=== PATIENT | male | born 1950 | race Two or more races ===

== ENCOUNTER 2017-12-12 10:33 | Inpatient (IN) | payer MEDICARE, MEDICAID ==
[~2017-12-12] VITALS: Ht 170.2 cm; Wt 70.8 kg
--- NOTE | 2017-12-12 10:38 | NUR ---
[id number] FROM [facility]: S/P WITNESSED SEIZURE x 2 AT [facility]. ASSISTED TO GROUND. NO TRAUMA, NO KO. AAO X2, NAD NOTED. SZ PRECAUTIONS PLACED. MD AT BEDSIDE FOR EVAL.
[2017-12-12 10:54] LABS: BASOPHILS % (AUTO) 0.2 % (0.0-2.0); EOSINOPHILS % (AUTO) 0.1 % (0.0-6.0); HEMATOCRIT 41 % (39-51); HEMOGLOBIN 14.1 g/dL (13.5-17.5); LYMPHOCYTES # (AUTO) 0.4 /CMM (0.8-4.8); LYMPHOCYTES % (AUTO) 6.9 % (20.0-44.0); MEAN CORPUSCULAR HEMOGLOBIN 34 PG (26.0-33.0); MEAN CORPUSCULAR HGB CONC 34 g/dl (31.0-36.0); MEAN CORPUSCULAR VOLUME 98 fL (80-96); MONOCYTES # (AUTO) 0.3 /CMM (0.1-1.30); MONOCYTES % (AUTO) 5.5 % (2.0-12.0); NEUTROPHILS # (AUTO) 5.6 /CMM (1.8-8.9); NEUTROPHILS % (AUTO) 87.3 % (43.0-81.0); PLATELET COUNT (AUTO) 289 /CMM (150-450); RDW COEFFICIENT OF VARIATION 13.3 (11.5-15.0); WHITE BLOOD COUNT (AUTO) 6.3 K/uL (4.3-11.0)
[2017-12-12 11:07] LABS: CALCIUM, SERUM 8.9 mg/dL (8.5-10.1); CARBON DIOXIDE 22 mmol/L (21-32); CHLORIDE 94 mmol/L (98-107); GLUCOSE 126 mg/dL (74-106); SODIUM SERUM 129 mmol/L (136-145); UREA NITROGEN, BLOOD 12 mg/dL (7-18)
[2017-12-12 11:26] LABS: ALANINE AMINOTRANSFERASE 19 U/L (12-78); ALCOHOL, BLOOD < 3 mg/dL (0-0); ALKALINE PHOSPHATASE 81 U/L (46-116); ASPARTATE AMINOTRANSFERASE 16 U/L (15-37); BILIRUBIN,DIRECT 0.1 mg/dL (0.0-0.2); BILIRUBIN,TOTAL 0.4 mg/dL (0.2-1.0); TOTAL PROTEIN, SERUM 7.3 g/dL (6.4-8.2)
[2017-12-12] MEDS ORDERED: PRAV20TA4 PO (11:41)
[2017-12-12] MEDS ORDERED: RISP0.253 PO (11:41)
[2017-12-12] MEDS ORDERED: ALBU18HF2 IH (11:41)
[2017-12-12] MEDS ORDERED: SPIR25TA PO (11:41)
[2017-12-12] MEDS ORDERED: METO25TA3 PO (11:41)
[2017-12-12] MEDS ORDERED: POTA20TA83 PO (11:41)
[2017-12-12] MEDS ORDERED: CHOL100044 PO (11:41)
[2017-12-12] MEDS ORDERED: HALO2TAB PO (11:41)
[2017-12-12] MEDS ORDERED: TAMS-12 PO (11:41)
[2017-12-12] MEDS ORDERED: LEVE250T2 PO (11:41)
[2017-12-12] MEDS ORDERED: ASPI-1152 PO (11:41)
[2017-12-12] MEDS ORDERED: VALS80TA2 PO (11:41)
--- NOTE | 2017-12-12 12:18 | NUR ---
BED 314-2
--- NOTE | 2017-12-12 12:45 | NUR ---
CHIPS SCREEN TENDERREFRIGERATION MECHANIC NOTE RECEIVED REPORT FROM KUNAL VERDIN. PATIENT WAS BROUGHT FROM [facility] DUE TO HAVING TWO WITNESSED SEIZURES, AND PATIENT HAD ONE MORE SEIZURE ON AMBULANCE ON THE WAY [facility]. PATIENT IS ALERT AND ORIENTED x1. NO PAIN AT THIS TIME. NO SOB OR DISTRESS NOTED. CALL LIGHT WITHIN REACH. SAFETY MEASURES IMPLEMENTED, SEIZURE PRECAUTION IMPLEMENTED. SKIN ISSUES PRESENT. MRSA SWAB DONE. LEFT HAND 18G, AND RIGHT AC 18G INTACT AND PATENT NO REDNESS OR SWELLING NOTED. ON ROOM AIR TOLERATING WELL O2 SATURATION ABOVE 92%. ALL BELONGINGS AT BEDSIDE AND ACCOUNTED FOR. AWAITING MD ORDERS. WILL CONTINUE TO MONITOR THROUGHOUT SHIFT AND MONITOR FOR ADDITIONAL SEIZURES. TELE MONITOR- SR 86
--- NOTE | 2017-12-12 13:05 | NUR ---
RN NOTES RECEIVED VERBAL ORDER BY DR DILIP SALMON 100 IV X4 DAYS , SEIZURE PRECAUTION, CONTINUE MEDICATION, CONTINUE DIET, ORDER TAKEN AND CARRIED OUT.
[2017-12-12 14:10] VITALS: BP 134/91
[2017-12-12] MEDS: LEVETIRACETAM (500MG) 250 MG in IV NS 0.9% 100 ML IV SCH ×2 (15:50→20:43)
[2017-12-12 16:05] VITALS: BP 135/97
[2017-12-12] MEDS ORDERED: HALOPERIDOL 1 MG TABLET PO PRN (17:00)
[2017-12-12] MEDS ORDERED: LEVETIRACETAM (250 MG) 250 MG TABLET PO SCH (17:00)
[2017-12-12] MEDS: risperiDONE 0.25 MG TABLET PO SCH (17:04)
[2017-12-12] MEDS: VALSARTAN 80 MG TABLET PO SCH (17:04)
--- NOTE | 2017-12-12 18:29 | NUR ---
HYDROTEL OPERATOR CLOSING NOTE PATIENT IS ALERT AND ORIENTED X1. CALL LIGHT WITHIN REACH AT ALL TIMES. SAFETY MEASURES IMPLEMENTED. SEIZURE PRECAUTIONS IN PLACE. ALL DUE MEDICATIONS GIVEN ORDERED. AWAITING PT AND WOUND CONSULT. NO SEIZURE ACTIVITY NOTED THROUGHOUT SHIFT. NO PAIN, NO SOB OR DISTRESS AT THIS TIME. WILL ENDORSE TO CLERK GUIDE FOR MALIKA Addendum: 12/12/17 at 1832 by KEVIN MENENDEZ RN TELE MONITOR SR-[id number]
[2017-12-12] MEDS ORDERED: ALBUTEROL FS 2.5 MG/3 ML VIAL.NEB NEB PRN (19:30)
--- NOTE | 2017-12-12 19:30 | NUR ---
RN NOTES: RECEIVED AWAKE ON BED, SEMI FOWLERS POSITION,ON RA SPO2-98%.TELE MONITOR SINUS BRADYCARDIA-54,PATIENT IS COMFORTABLE, NO SIGN OF SOB OR ANY RESPIRATORY DISTRESS,FALL, SAFETY, ASPIRATION, SEIZURE PRECAUTION OBSERVED AT ALL TIMES, ON 1;1 SITTER FOR CLOSE WATCH,A/OX1 ABLE TO MAKE NEEDS KNOWN, HEBREW SPEAKING,RAC G#18 AND LH G#20 CANNULA INTACT AND PATENT;CALL LIGHT WITHIN EASY REACH, BED LOW AND LOCKED.
[2017-12-12 20:00] VITALS: BP 142/97
[2017-12-12] MEDS: PRAVASTATIN SODIUM 20 MG TABLET PO SCH (21:40)
[2017-12-12] MEDS: TAMSULOSIN 0.4 MG CAP.SR.24H PO SCH (21:40)
[2017-12-13] VITALS: BP 136/95
--- NOTE | 2017-12-13 03:45 | NUR ---
RN NOTES: ABLE TO SLEEP AT SHORT INTERVALS,HE WAS AWAKEN WHEN HIS ROOM MATE STARTED TO SHOUT AND HE START TO GET AGITATED ALSO, ABLE TO PACIFY AND CALM HIM DOWN AND LET HIM REST.
--- NOTE | 2017-12-13 04:15 | NUR ---
RN NOTES: 1;1 SITTER EXPLAINED TO HIM WE NEED TO CHECK HIS V/S HE WAS STILL UPSET AND UNABLE TO GO BACK TO SLEEP AFTER HE WAS AWAKEN BY LOUD SOUND.HE REFUSE FOR V/S TO BE TAKEN, WILL TRY AGAIN LATER.
[2017-12-13 06:00] VITALS: BP 133/82
--- NOTE | 2017-12-13 06:56 | NUR ---
RN NOTES: ABLE TO SLEEP AGAIN, V/S CHECKED WITHIN NORMAL RANGE,ENDORSED FOR CONTINUITY OF CARE, NO SEIZURE IN THE ENTIRE SHIFT,WILL CONTINUE TO MONITOR.
--- NOTE | 2017-12-13 07:25 | NUR ---
CODER OPERATOR/OPENING NOTES RECEIVED PT. IN BED A&OX1.1:1 SITTER AT BEDSIDE. TELE MONITOR READING SINUS BRADUCARIA 55 BPM. BREATHING UNLABORED, AND EVENLY ON ROOM AIR. NO S/S OF ACUTE DISTRESS. IV ACCESS ON RIGHT ANTECUBITAL SITE. PT. IS ON SEIZURE PRECAUTIONS. PADDING ON 2 UPPER SIDE RAILS. BED IS IN LOWEST, AND LOCKED POSITION. 2 SIDE RAILS UP, AND CALL LIGHT IS WITHIN REACH. ALL NEEDS MET. WILL CONTINUE TO ASSESS AND MONITOR.
[2017-12-13 08:00] VITALS: BP 120/80
[2017-12-13] MEDS: LEVETIRACETAM (500MG) 250 MG in IV NS 0.9% 100 ML IV SCH (09:49)
[2017-12-13] MEDS: POTASSIUM CHLORIDE 20 MEQ TAB.PRT.SR PO SCH (09:49)
[2017-12-13] MEDS: CHOLECALCIFEROL 1,000 UNIT TABLET (VIT D3) PO SCH (09:50)
[2017-12-13] MEDS: ASPIRIN EC 81 MG TABLET.DR PO SCH (09:50)
[2017-12-13] MEDS: risperiDONE 0.25 MG TABLET PO SCH ×2 (09:53→17:28)
[2017-12-13] MEDS: METOPROLOL SUCCINATE 25 MG TAB.SR.24H PO SCH (10:04)
[2017-12-13] MEDS: VALSARTAN 80 MG TABLET PO SCH ×2 (10:05→17:28)
[2017-12-13] MEDS: SPIRONOLACTONE 25 MG TABLET PO SCH (10:05)
[2017-12-13 16:00] VITALS: BP 123/84
--- NOTE | 2017-12-13 18:55 | NUR ---
DRUG SAFETY PHYSICIAN/CLOSING NOTES PT. IN BED A&OX1-2, WITH A 1:1 SITTER AT BEDSIDE. TELE MONITOR READING SINUS RHYTHM 60 BPM. BREATHING UNLABORED, AND EVENLY ON ROOM AIR. NO S/S OF ACUTE DISTRESS. IV ACCESS ON RIGHT ANTECUBITAL SITE, INTACT AND PATENT. PT. IS ON SEIZURE PRECAUTIONS. PADDING ON 2 UPPER SIDE RAILS. BED IS IN LOWEST, AND LOCKED POSITION. 2 SIDE RAILS UP, AND CALL LIGHT IS WITHIN REACH. ALL NEEDS MET. WILL ENDORSE REPORT TO NURSE.
--- NOTE | 2017-12-13 19:35 | NUR ---
RN OPENING NOTES RECEIVED REPORT FROM HALEY RNLANG. FOUND Pt AWAKE, RESTING IN BED. TALKING WITH ULTRASOUND TECHNOLOGIST SONOGRAPHER/SITTER VEDA AT BEDSIDE. Pt IS A/OX1, CONFUSED, BUT IS VERBAL, [place] SPEAKING ONLY. NO S/S OF ACUTE DISTRESS OR SOB NOTED. Pt ON TELE, WITH READINGS OF SR & SB OF 55 WITH PVC's. Pt WAS ABLE TO WALK WITH PT TODAY WITH WALKER. IV ACCESS ON RAC #18G, SL. SAFETY MEASURES IN PLACE. BED LOW, LOCKED, HOB ELEVATED, SIDE RAILS UP, CALL LIGHT AND BEDSIDE TABLE WITHIN REACH. WILL CONTINUE TO MONITOR Pt THROUGHOUT THE NIGHT FOR SAFETY.
[2017-12-13 20:00] VITALS: BP 114/76
[2017-12-13] MEDS: TAMSULOSIN 0.4 MG CAP.SR.24H PO SCH (21:36)
[2017-12-13] MEDS: LEVETIRACETAM (250 MG) 250 MG TABLET PO SCH (21:36)
[2017-12-13] MEDS: PRAVASTATIN SODIUM 20 MG TABLET PO SCH (21:38)
[2017-12-14] VITALS: BP 120/81
[2017-12-14 04:30] VITALS: BP 128/70
--- NOTE | 2017-12-14 06:30 | NUR ---
RN CLOSING NOTES NO SIGNIFICANT CHANGES IN Pt's CONDITION DURING THE NIGHT. Pt REMAINS STABLE AT THIS TIME. NO S/S OF ACUTE DISTRESS OR SOB NOTED DURING THE SHIFT. ALL NEEDS MET AND ATTENDED TO. SAFETY MEASURES IN PLACE. TELE READING SB 51-SR 60's WITH PAC'S. WILL ENDORSE TO DAYSHIFT RN FOR Pt's MALIKA.
--- NOTE | 2017-12-14 07:20 | NUR ---
RN NOTES: PATIENT RESTING IN BED. NONLABORED BREATHING NOTED ON ROOM AIR. IV SITE AT RIGHT AC PATENT AND INTACT. PATIENT AOX1 NO FACIAL GRIMACING NOTED. BED IN LOWEST LOCKED POSITION. CALL LIGHT WITHIN REACH. PATIENT SINUS 76 ON TELE MONITOR. SITTER AT BEDSIDE
[2017-12-14 08:00] VITALS: BP 109/73
[2017-12-14] MEDS: METOPROLOL SUCCINATE 25 MG TAB.SR.24H PO SCH (08:10)
[2017-12-14] MEDS: VALSARTAN 80 MG TABLET PO SCH ×2 (08:10→16:49)
[2017-12-14] MEDS: LEVETIRACETAM (250 MG) 250 MG TABLET PO SCH ×2 (08:59→21:11)
[2017-12-14] MEDS: SPIRONOLACTONE 25 MG TABLET PO SCH (09:00)
[2017-12-14] MEDS: CHOLECALCIFEROL 1,000 UNIT TABLET (VIT D3) PO SCH (09:00)
[2017-12-14] MEDS: risperiDONE 0.25 MG TABLET PO SCH ×2 (09:01→16:59)
[2017-12-14] MEDS: POTASSIUM CHLORIDE 20 MEQ TAB.PRT.SR PO SCH (09:01)
[2017-12-14] MEDS: ASPIRIN EC 81 MG TABLET.DR PO SCH (09:02)
[2017-12-14 12:00] VITALS: BP 118/68
[2017-12-14 16:00] VITALS: BP 109/75
--- NOTE | 2017-12-14 16:51 | NUR ---
RN NOTES: NO SEIZURES DURING SHIFT, PATIENT DENIES SI/HI
--- NOTE | 2017-12-14 19:30 | NUR ---
RN NOTES: PATIENT RESTING IN BED. NONLABORED BREATHING NOTED ON ROOM AIR. IV SITE AT RIGHT AC PATENT AND INTACT. PATIENT AOX1 NO FACIAL GRIMACING NOTED. BED IN LOWEST LOCKED POSITION. CALL LIGHT WITHIN REACH. PATIENT SINUS 60S HEART RATE ON TELE MONITOR. SITTER AT BEDSIDE DURING SHIFT, NO SEIZURES NOTED, PATIENT ATE 100% OF MEALS, NO NAUSEA AND NO VOMITTING. PATIENT TURNED AND REPOSITIONED Q 2 HOURS. KEPT CLEAN AND DRY. ENDORSED TO NEXT SHIFT
--- NOTE | 2017-12-14 19:45 | NUR ---
RN OPENING NOTES RECEIVED REPORT FROM HALEY RNALVIN. FOUND Pt ASLEEP IN BED, WITH EVEN AND UNLABORED RESPIRATIONS. Pt IS A/OX1, CONFUSED, BUT IS VERBAL, [place]VADOREAN SPEAKING ONLY. NO S/S OF ACUTE DISTRESS OR SOB NOTED. Pt ON TELE, WITH READINGS OF SR 61. IV ACCESS ON RAC #18G, SL. SAFETY MEASURES IN PLACE. BED LOW, LOCKED, HOB ELEVATED, SIDE RAILS UP, CALL LIGHT AND BEDSIDE TABLE WITHIN REACH. WILL CONTINUE TO MONITOR Pt THROUGHOUT THE NIGHT FOR SAFETY.
[2017-12-14 20:00] VITALS: BP 102/63
[2017-12-14] MEDS: TAMSULOSIN 0.4 MG CAP.SR.24H PO SCH (21:10)
[2017-12-14] MEDS: PRAVASTATIN SODIUM 20 MG TABLET PO SCH (21:11)
--- NOTE | 2017-12-15 06:45 | NUR ---
RN CLOSING NOTES NO SIGNIFICANT CHANGES IN Pt's CONDITION. Pt REMAINS STABLE AT THIS TIME. NO S/S OF ACUTE DISTRESS OR SOB NOTED DURING THE NIGHT. ALL NEEDS MET AND ATTENDED TO. SAFETY MEASURES IN PLACE. WILL ENDORSE TO DAYSHIFT RN FOR Pt's MALIKA.
[2017-12-15 07:13] LABS: CALCIUM, SERUM 8.7 mg/dL (8.5-10.1); CREATININE 0.7 mg/dL (0.6-1.3); POTASSIUM 4.4 mmol/L (3.5-5.1)
--- NOTE | 2017-12-15 07:30 | NUR ---
PT RECEIVED RESTING COMFORTABLY IN BED WITH EYES CLOSED. NO S/S OR C/O PAIN OR DISTRESS NOTED. SIDE RAILS UP X2, CALL LIGHT LEFT WITHIN REACH. WILL CONTINUE PLAN OF CARE.
[2017-12-15 08:00] VITALS: BP 121/74
[2017-12-15] MEDS: VALSARTAN 80 MG TABLET PO SCH ×2 (08:34→16:55)
[2017-12-15] MEDS: METOPROLOL SUCCINATE 25 MG TAB.SR.24H PO SCH (08:34)
[2017-12-15] MEDS: SPIRONOLACTONE 25 MG TABLET PO SCH (08:35)
[2017-12-15] MEDS: ASPIRIN EC 81 MG TABLET.DR PO SCH (08:35)
[2017-12-15] MEDS: CHOLECALCIFEROL 1,000 UNIT TABLET (VIT D3) PO SCH (08:35)
[2017-12-15] MEDS: LEVETIRACETAM (250 MG) 250 MG TABLET PO SCH ×2 (08:35→22:10)
[2017-12-15] MEDS: POTASSIUM CHLORIDE 20 MEQ TAB.PRT.SR PO SCH (08:35)
[2017-12-15] MEDS: risperiDONE 0.25 MG TABLET PO SCH ×2 (08:35→16:55)
--- NOTE | 2017-12-15 10:15 | NUR ---
WOUND CARE CONSULT: PT PRESENTS WITH BLANCHABLE REDNESS TO SACRUM. ALL SKIN PROTECTION MEASURES IN PLACE AND DISCUSSED WITH NURSING STAFF. CURRENT TANISHA SCORE IS 14. WILL SEE PRN. CUENCA IN AGREEMENT WITH PLAN OF CARE. Addendum: 12/15/17 at 1016 by JONAH PARRA WNDNU Amended: Links added.
[2017-12-15] MEDS ORDERED: Z GUARD REMEDY 2 OZ OINT TP PRN (10:30)
[2017-12-15 16:00] VITALS: BP 130/87
--- NOTE | 2017-12-15 18:51 | NUR ---
CHANGE OF SHIFT REPORT PT RESTING COMFORTABLY IN BED. NO S/S OR C/O PAIN OR DISTRESS NOTED. SIDE RAILS UP X2, CALL LIGHT LEFT WITHIN REACH. PT KEPT CLEAN, DRY, AND COMFORTABLE. NO SIGNIFICANT CHANGES SINCE PREVIOUS SHIFT. WILL GIVE REPORT TO ERIC SYED.
--- NOTE | 2017-12-15 19:30 | NUR ---
RN OPENING NOTES RECEIVED PT AWAKE IN BED, WITH EVEN AND UNLABORED RESPIRATIONS. Pt IS A/OX1, CONFUSED, BUT IS VERBAL, [place] SPEAKING ONLY. NO S/S OF ACUTE DISTRESS OR SOB NOTED. IV ACCESS ON RAC #18G, SL. SAFETY MEASURES IN PLACE. BED LOW, LOCKED, HOB ELEVATED, SIDE RAILS UP, CALL LIGHT AND BEDSIDE TABLE WITHIN REACH. WILL CONTINUE TO MONITOR Pt THROUGHOUT THE NIGHT FOR SAFETY.
[2017-12-15 20:00] VITALS: BP 117/75
[2017-12-15] MEDS: TAMSULOSIN 0.4 MG CAP.SR.24H PO SCH (22:10)
[2017-12-15] MEDS: PRAVASTATIN SODIUM 20 MG TABLET PO SCH (22:11)
--- NOTE | 2017-12-16 06:14 | NUR ---
ms rn note Patient stable. Sitting up in bed at this time. All needs met and attended to. Will endorse to day shift for damien.
--- NOTE | 2017-12-16 07:00 | NUR ---
MS/RN OPENING NOTE RECEIVED PATIENT IN BED AWAKE. ALERT AND ORIENTED X2. EPISODES OF FORGETFULNESS AND CONFUSION NOTED. REDIRECTION AND REMINDERS PROVIDED NEEDED. DENIES SOB, PAIN AT THIS TIME. BREATHING REGULAR AND UNLABORED. IN NO APPARENT DISTRESS. THE PATIENT WITH RAC G 18 PATENT AND SALINE LOCKED. BED LOW AND LOCKED. SIDE RAIL UP X2. CALL LIGHT WITHIN REACH. WILL CONTINUE TO MONITOR.
[2017-12-16 08:00] VITALS: BP 144/81
[2017-12-16 08:06] VITALS: BP 144/81
[2017-12-16] MEDS: risperiDONE 0.25 MG TABLET PO SCH (08:45)
[2017-12-16 08:46] VITALS: BP 144/81
[2017-12-16] MEDS: ASPIRIN EC 81 MG TABLET.DR PO SCH (08:46)
[2017-12-16] MEDS: LEVETIRACETAM (250 MG) 250 MG TABLET PO SCH (08:46)
[2017-12-16] MEDS: CHOLECALCIFEROL 1,000 UNIT TABLET (VIT D3) PO SCH (08:46)
[2017-12-16] MEDS: SPIRONOLACTONE 25 MG TABLET PO SCH (08:46)
[2017-12-16] MEDS: VALSARTAN 80 MG TABLET PO SCH (08:46)
[2017-12-16] MEDS: POTASSIUM CHLORIDE 20 MEQ TAB.PRT.SR PO SCH (08:46)
[2017-12-16] MEDS: METOPROLOL SUCCINATE 25 MG TAB.SR.24H PO SCH (08:46)
--- NOTE | 2017-12-16 13:21 | NUR ---
MS/RN CLOSING NOTE PATIENT ALERT AND ORIENTED X1. RESPIRATION REGULAR AND UNLABORED. DENIES SOB, PAIN AT THIS TIME. IN STABLE CONDITION. SKIN ASSESSMENT DONE, PICTURES TAKEN. IV LINES REMOVED. NO BLEEDING NOTED. THE RESIDENT LEFT THE HOSPITAL IN STABLE CONDITION AND ON A GURNEY. REPORT WAS GIVEN TO
== END 2017-12-16 13:22 | DRG 100 ==
LOC: ER 10:35 → TELE 12:35 → MED 12-15 09:24
PROVIDERS: ADMIT Internal Medicine; ATTEND Internal Medicine
DX: G40.419 Other generalized epilepsy and epileptic syndromes, intractable, without status epilepticus (principal); G93.49 Other encephalopathy; I69.354 Hemiplegia and hemiparesis following cerebral infarction affecting left non-dominant side; F03.90 Unspecified dementia, unspecified severity, without behavioral disturbance, psychotic disturbance, mood disturbance, and anxiety; E87.1 Hypo-osmolality and hyponatremia; F20.9 Schizophrenia, unspecified; J44.9 Chronic obstructive pulmonary disease, unspecified; I10 Essential (primary) hypertension; I25.10 Atherosclerotic heart disease of native coronary artery without angina pectoris; N40.0 Benign prostatic hyperplasia without lower urinary tract symptoms; E78.5 Hyperlipidemia, unspecified; E55.9 Vitamin D deficiency, unspecified; Z72.0 Tobacco use; Z79.899 Other long term (current) drug therapy; E11.9 Type 2 diabetes mellitus without complications; M81.0 Age-related osteoporosis without current pathological fracture; F99 Mental disorder, not otherwise specified
CPT/HCPCS: 36415; 70450-TC; 71045-TC; 80048-TC; 80076-TC; 85025-TC; 87081-TC; 92521; 97116-TC; 97530-TC; A4606; G0480; J1953; J7030; Z7610

== ENCOUNTER 2019-11-25 12:23 | Inpatient (IN) | payer MEDICARE, MEDICAID ==
[~2019-11-25] VITALS: Ht 162.6 cm; Wt 75.7 kg
[~2019-11-25 12:23] MED LIST: ALBU18HF2 IH; ASPI-1152 PO; ATOR40TA PO; CHOL100044 PO; DIVA-78 PO; FINA5TAB11 PO; LEVE250T2 PO; LOSA50TA39 PO; METO25TA3 PO; OMEP20CA15 PO; POTA20TA83 PO; RISP0.253 PO; SODI1TAB66 PO; SPIR25TA PO; ZONI100C31 PO
--- NOTE | 2019-11-25 12:30 | NUR ---
[id number]. WITNESSED SEIZURE BY PARAMEDICS. VERSED 5MG IV GIVEN SUBSTATION DESIGNER. PATIENT POST-ICTAL, WEAK AND LETHARGIC AT THIS TIME. IV LINE ON RIGHT AC G20 IV SUBSTATION DESIGNER. ATTACHED TO THE COMMERCIAL DRIVER. SEIZURE PRECAUTION OBSERVED.
[2019-11-25 12:48] LABS: MONOCYTES # (AUTO) 0.3 /CMM (0.1-1.30)
[2019-11-25 12:52] LABS: HEMATOCRIT 25 % (39-51); NEUTROPHILS # (AUTO) 2.3 /CMM (1.8-8.9); WHITE BLOOD COUNT (AUTO) 3.8 K/uL (4.3-11.0)
[2019-11-25 12:55] LABS: EOSINOPHILS % (AUTO) 1.1 % (0.0-6.0); HEMOGLOBIN 7.7 g/dL (13.5-17.5); LYMPHOCYTES % (AUTO) 27.5 % (20.0-44.0); MEAN CORPUSCULAR HGB CONC 31 g/dl (31.0-36.0); MEAN CORPUSCULAR VOLUME 81 fL (80-96); MONOCYTES % (AUTO) 8.8 % (2.0-12.0); NEUTROPHILS % (AUTO) 61.6 % (43.0-81.0); PLATELET COUNT (AUTO) 450 /CMM (150-450); RED BLOOD CELL COUNT(AUTO) 3.09 MIL/uL (4.5-6.0)
[2019-11-25 12:56] LABS: CALCIUM, SERUM 8.8 mg/dL (8.5-10.1); CARBON DIOXIDE 21 mmol/L (21-32); CHLORIDE 99 mmol/L (98-107); CREATININE 1.1 mg/dL (0.6-1.3); GLUCOSE 118 mg/dL (74-106); POTASSIUM 3.3 mmol/L (3.5-5.1); SODIUM SERUM 132 mmol/L (136-145); UREA NITROGEN, BLOOD 18 mg/dL (7-18)
[2019-11-25] MEDS ORDERED: LEVETIRACETAM (500MG) 500 MG in IV NS 0.9% 100 ML IV ONE (13:00)
[2019-11-25 13:02] LABS: ALANINE AMINOTRANSFERASE 22 U/L (12-78); ALBUMIN 3.7 g/dL (3.4-5.0); ALKALINE PHOSPHATASE 72 U/L (46-116); ASPARTATE AMINOTRANSFERASE 13 U/L (15-37); BILIRUBIN,DIRECT 0.1 mg/dL (0.0-0.2); BILIRUBIN,TOTAL 0.2 mg/dL (0.2-1.0); TOTAL PROTEIN, SERUM 6.9 g/dL (6.4-8.2)
[2019-11-25] MEDS ORDERED: SIMV10TA98 PO (13:09)
[2019-11-25] MEDS ORDERED: ACET-2605 PO (13:09)
[2019-11-25] MEDS ORDERED: HALO0.5T2 PO (13:09)
[2019-11-25] MEDS ORDERED: OLAN15TA3 PO (13:09)
[2019-11-25] MEDS ORDERED: FURO-145 PO (13:09)
[2019-11-25] MEDS ORDERED: VALS80TA2 PO (13:09)
[2019-11-25] MEDS ORDERED: TAMS-12 PO (13:09)
[2019-11-25] MEDS ORDERED: ALPR0.255 PO (13:09)
--- NOTE | 2019-11-25 13:18 | NUR ---
CALLED FOR TELE BED AND SUBMITTED MOVE SHEET TO ADMITTING.
--- NOTE | 2019-11-25 13:39 | NUR ---
CALLED MAJO CHERRY [phone]... WILL BE PAGED.
--- NOTE | 2019-11-25 14:02 | NUR ---
GOT BED 311-2
[2019-11-25 14:23] LABS: LYMPHOCYTES % (MANUAL) 7 % (16-48); MONOCYTES % (MANUAL) 12 % (0-11.0); NEUTROPHILS % (MANUAL) 81 (42-76)
--- NOTE | 2019-11-25 14:28 | NUR ---
REPORT GIVEN TO ZENA Fuentes
[2019-11-25 15:00] VITALS: BP 113/78
--- NOTE | 2019-11-25 15:00 | NUR ---
ACCESS SPECIALIST ADMITTING NOTES ADMITTED PT FROM ER WITH DX OF UNCONTROLLED SEIZURE AND SEVERE ANEMIA.PT IS ALERT,CONFUSED,CITIZEN OF [place] SPEAKING BUT ABLE TO VERBALIZE HIS SIMPLE NEEDS.PT IS CALM AND PLEASANT,ALWAYS WANTS HIS TENNIS SHOES AND JACKET ON EVEN WHILE IN BED OR ELSE HE WILL GET ANGRY AND AGITATED WHEN HIS TENNIS SHOES ARE REMOVED FROM HIS FEET.SKIN INTACT.NO SOB ON ROOM AIR.ON BEDREST.INCONTINENT.IV H/L INTACT TO RT AC.LOW HGB/HCT.WILL NOTIFY DR CHERRY FOR PT'S LOW HGB/HCT AND LOW K+ LEVEL.ANTICIPATED NEEDS AND CALL LIGHT PLACED WITHIN REACH.
--- NOTE | 2019-11-25 15:02 | NUR ---
PATIENT TRANSFERRED TO ROOM 311-2 VIA ACLS PROTOCOL. NO DISTRES NOTED. NEEDS ATTENDED. KEPT COMFORTABLE.
[2019-11-25 16:00] VITALS: BP 113/78
--- NOTE | 2019-11-25 16:15 | NUR ---
DR CHERRY RETURNED CALL WITH NEW ORDERS CARRIED OUT AND IS AWARE OF PT'S LOW HGB,HCT.PLACED STAT LAB ORDERS AND WILL NOTIFY DR CHERRY FOR THE RESULTS AND MED LIST COMING FROM [facility] .
[2019-11-25 16:44] LABS: IRON, SERUM 9 ug/dl (50-175); TOTAL IRON BINDING CAPACITY 364 ug/dl (250-450)
[2019-11-25] MEDS ORDERED: LAMO25TA10 PO (17:03)
[2019-11-25] MEDS ORDERED: ATOR40TA PO (17:03)
[2019-11-25 17:16] LABS: FERRITIN 10 ng/mL (8-388)
[2019-11-25 17:18] LABS: VALPROIC ACID 0 ug/mL (50-100)
[2019-11-25] MEDS ORDERED: HALOPERIDOL 1 MG TABLET PO PRN (18:00)
[2019-11-25] MEDS ORDERED: ACETAMINOPHEN ES 500 MG TABLET PO PRN (18:00)
--- NOTE | 2019-11-25 18:41 | NUR ---
DR CHERRY RETURNED CALL AND HAD RECEIVED ALL THE STAT LAB RESULTS AND MED LIST FROM [facility].CLARIFIED MED RECON AND GAVE NEW ORDERS AND FAXED TO THE PHARMACY AND SPOKE TO KRYSTINA,PHARMACIST WHO WILL CHECK THE FAXED MED RECON LIST RECEIVED.
[2019-11-25] MEDS: METOPROLOL SUCCINATE 50 MG TAB.SR.24H PO SCH (18:44)
[2019-11-25] MEDS: LOSARTAN POTASSIUM 50 MG TABLET PO SCH (18:44)
--- NOTE | 2019-11-25 19:00 | NUR ---
PT CALM IN BED PLEASANT DENYING ANY PAIN OR DISTRESS.ON SEIZURE PRECAUTIONS.ATE 100%DINNER.CALL LIGHT PLACED WITHIN REACH.
--- NOTE | 2019-11-25 19:20 | NUR ---
TELE/RN OPENING NOTES PT RECEIVED AWAKE, WATCHING TV. A/OX1. ON ROOM AIR, BREATHING EVEN AND UNLABORED. IN NO ACUTE RESPIRATORY DISTRESS. ON TELE MONITOR SHOWING SR 77. DENIES PAIN AT THIS TIME. IV TO RAC PATENT AND INTACT - SALINE LOCKED. PT GETTING AGITATED WHEN I TRY TO REMOVE HIS JACKET SLEEVE TO VISUALIZE IV SITE MORE CLEARLY. SEIZURE PRECAUTIONS IMPLEMENTED. HOB ELEVATED 30 DEGREES. SIDE RAILS UPX3 AND BED ALARM ON FOR SAFETY. WILL CONTINUE TO MONITOR
[2019-11-25 20:00] VITALS: BP 118/71
[2019-11-25] MEDS: VALPROATE 500 MG in IV NS 0.9% 100 ML IV SCH (20:09)
[2019-11-25] MEDS: LEVETIRACETAM (250 MG) 250 MG TABLET PO SCH (22:03)
[2019-11-26] VITALS (10 sets, daily range): BP systolic 98–122; BP diastolic 64–87
[2019-11-26 06:21] LABS: BASOPHILS % (AUTO) 0.8 % (0.0-2.0); EOSINOPHILS % (AUTO) 2.3 % (0.0-6.0); HEMATOCRIT 21 % (39-51); LYMPHOCYTES # (AUTO) 1.2 /CMM (0.8-4.8); LYMPHOCYTES % (AUTO) 33.7 % (20.0-44.0); MEAN CORPUSCULAR HGB CONC 32 g/dl (31.0-36.0); MEAN CORPUSCULAR VOLUME 79 fL (80-96); MONOCYTES # (AUTO) 0.4 /CMM (0.1-1.30); MONOCYTES % (AUTO) 11.4 % (2.0-12.0); NEUTROPHILS # (AUTO) 1.9 /CMM (1.8-8.9); NEUTROPHILS % (AUTO) 51.8 % (43.0-81.0); PLATELET COUNT (AUTO) 397 /CMM (150-450); RED BLOOD CELL COUNT(AUTO) 2.69 MIL/uL (4.5-6.0); WHITE BLOOD COUNT (AUTO) 3.6 K/uL (4.3-11.0)
[2019-11-26] MEDS: PANTOPRAZOLE 40 MG TABLET.DR PO SCH (06:31)
[2019-11-26 06:38] LABS: HEMOGLOBIN 6.8 g/dL (13.5-17.5)
[2019-11-26 06:44] LABS: ALBUMIN 3.1 g/dL (3.4-5.0); BILIRUBIN,TOTAL 0.3 mg/dL (0.2-1.0); CALCIUM, SERUM 8.3 mg/dL (8.5-10.1); CREATININE 0.8 mg/dL (0.6-1.3); POTASSIUM 4.3 mmol/L (3.5-5.1); TOTAL PROTEIN, SERUM 5.8 g/dL (6.4-8.2)
--- NOTE | 2019-11-26 07:01 | NUR ---
TELE/RN NOTES SPOKE TO DR. CHERRY RE: PT'S CRITICAL H/H 6.07/07 THIS AM. MADE AWARE THAT WE STILL NEED TO OBTAIN BLOOD CONSENT FROM PT'S FAMILY. WITH VERBAL ORDERS TO INFUSE 1 UNIT PRBC ONCE CONSENT IS OBTAINED AND GIVE 20MG IV LASIX X1 DURING INFUSION. ORDERS READBACK PER PROTOCOL. WILL ENDORSE TO DAY SHIFT Addendum: 11/26/19 at 0722 by ISIS FRANCO RN ALSO INFORMED MD THAT FERRITIN, IRON AND TIBC WAS DRAWN YESTERDAY.
--- NOTE | 2019-11-26 07:09 | NUR ---
SPOKE TO MEMBER OF [employer] TO ASK FOR PT'S CONTACT INFO TO OBTAIN VERBAL CONSENT FOR BLOOD. THEY SAID TO CALL BACK AFTER HALF AND HOUR BECAUSE THERE IS NO STAFF AVAILABLE TO PROVIDE THE INFORMATION AT THIS TIME. Addendum: 11/26/19 at 0739 by ISIS FRANCO RN TO OBTAIN FAMILY MEMBER'S PHONE NUMBER*
--- NOTE | 2019-11-26 07:39 | NUR ---
TELE/RN CLOSING NOTES PT AWAKE, RESTING COMFORTABLY IN BED. ABLE TO MAKE BASIC NEEDS KNOWN. ON ROOM AIR, BREATHING EVEN AND UNLABORED. IN NO ACUTE RESPIRATORY DISTRESS. ON TELE MONITOR SHOWING NSR. DENIES PAIN AT THIS TIME. IV TO RAC PATENT AND INTACT - SALINE LOCKED. PT REFUSED TO REMOVE HIS SHOES, PANTS AND SWEATER DESPITE MULTIPLE ATTEMPTS. PT BECAME VERY UPSET. SEIZURE PRECAUTIONS IMPLEMENTED THROUGHOUT SHIFT. HOB ELEVATED 30 DEGREES. SIDE RAILS UPX3 AND BED ALARM ON FOR SAFETY. ENDORSED TO DAY SHIFT RN MALIKA.
--- NOTE | 2019-11-26 07:58 | NUR ---
TELE/RN OPENING NOTES RECEIVED PATIENT AWAKE, RESTING COMFORTABLY IN BED.ON ROOM AIR, BREATHING EVEN AND UNLABORED. IN NO ACUTE RESPIRATORY DISTRESS. ON TELE MONITOR WITH READING OF SINUS RHYTHM. DENIES PAIN AT THIS TIME. IV TO RAC PATENT AND INTACT - SALINE LOCKED. HOB ELEVATED 30 DEGREES. SIDE RAILS UPX3 AND BED ALARM ON FOR SAFETY. WILL CONTINUE TO MONITOR.
[2019-11-26] MEDS ORDERED: FUROSEMIDE 20 MG/2 ML VIAL IV ONE ×2 (08:00→13:00)
[2019-11-26 08:32] LABS: BAND % (MANUAL) 1 % (0.0-5.0); EOSINOPHILS % (MANUAL) 1 % (0-4); LYMPHOCYTES % (MANUAL) 12 % (16-48); MONOCYTES % (MANUAL) 13 % (0-11.0); NEUTROPHILS % (MANUAL) 73 (42-76)
[2019-11-26] MEDS: LEVETIRACETAM (250 MG) 250 MG TABLET PO SCH ×2 (08:49→21:17)
[2019-11-26] MEDS: ASPIRIN EC 81 MG TABLET.DR PO SCH (08:50)
[2019-11-26] MEDS: FUROSEMIDE 20 MG TABLET PO SCH (08:50)
[2019-11-26] MEDS: SPIRONOLACTONE 25 MG TABLET PO SCH (08:51)
[2019-11-26] MEDS: LamoTRIgine 25 MG TABLET PO SCH (08:51)
[2019-11-26] MEDS: CHOLECALCIFEROL 1,000 UNIT TABLET (VIT D3) PO SCH (08:52)
[2019-11-26] MEDS: ATORVASTATIN 40 MG TABLET PO SCH (08:52)
[2019-11-26] MEDS: POTASSIUM CHLORIDE 20 MEQ TAB.PRT.SR PO SCH (08:52)
[2019-11-26] MEDS: ZONISAMIDE 100 MG CAPSULE PO SCH (08:52)
[2019-11-26] MEDS: risperiDONE 0.25 MG TABLET PO SCH ×2 (08:52→17:39)
[2019-11-26] MEDS: FINASTERIDE (5 MG) 5 MG TABLET PO SCH (08:52)
--- NOTE | 2019-11-26 08:57 | NUR ---
TELE/RN NOTES BLOOD PRESSURE MEDICINE NOT GIVEN DUE TO LOW BLOOD PRESSURE OF 102/71 PULSE OF 59.
[2019-11-26] MEDS ORDERED: FINASTERIDE (5 MG) 5 MG TABLET PO SCH (09:00)
[2019-11-26] MEDS ORDERED: LOSARTAN POTASSIUM 50 MG TABLET PO SCH (09:00)
[2019-11-26] MEDS ORDERED: CHOLECALCIFEROL 1,000 UNIT TABLET (VIT D3) PO SCH (09:00)
[2019-11-26] MEDS ORDERED: LEVETIRACETAM (250 MG) 250 MG TABLET PO SCH (09:00)
[2019-11-26] MEDS ORDERED: FUROSEMIDE 20 MG TABLET PO SCH (09:00)
[2019-11-26] MEDS ORDERED: POTASSIUM CHLORIDE 20 MEQ TAB.PRT.SR PO SCH (09:00)
[2019-11-26] MEDS ORDERED: METOPROLOL SUCCINATE 25 MG TAB.SR.24H PO SCH (09:00)
[2019-11-26] MEDS: LOSARTAN POTASSIUM 50 MG TABLET PO SCH ×2 (09:00→17:00)
[2019-11-26] MEDS ORDERED: ASPIRIN EC 81 MG TABLET.DR PO SCH (09:00)
--- NOTE | 2019-11-26 09:00 | NUR ---
RN NOTES LASIX 20MG IV NOT GIVEN THIS MORNING SCHEDULED AT 0800. WILL ADMINISTER DURING OR AFTER THE BT TRANSFUSION.
[2019-11-26] MEDS: VALPROATE 500 MG in IV NS 0.9% 100 ML IV SCH ×2 (09:03→20:20)
[2019-11-26] MEDS: LORAZEPAM INJ 2 MG/ML VIAL IV PRN ×2 (10:40→21:17)
--- NOTE | 2019-11-26 11:33 | NUR ---
RN NOTES PT WITH HGB OF 6.8 TODAY, CONSENT FOR BLOOD TRANSFUSION SIGNED BY PT. PT STARTED ON BLOOD TRANSFUSION OF PRBC X1 BAG (250ML) ORDERED AT 1120. PRE BT V/S : BP 98/64, P 66, R 18 AND T 98.6F. WILL MONITOR FOR ANY ALLERGIC/ADVERSE REACTIONS.
--- NOTE | 2019-11-26 11:42 | NUR ---
KUNAL NOTES NO ALLERGIC/ADVERSE REACTIONS NOTED AFTER 12MINUTES OF STARTING BLOOD TRANSFUSION. WILL CONTINUE TO MONITOR. Addendum: 11/26/19 at 1609 by RAMILA REESE RN CORRECTION: BLOOD TRANSFUSION AFTER 15 MINUTES NOT 12 MINUTES
--- NOTE | 2019-11-26 12:19 | NUR ---
RN NOTES PT'S BED ALARM BEEPING, WENT TO CHECK PT AND NOTED PT ON THE LEFT SIDE OF THE FLOOR TRYING TO GET-UP. PHYSICAL ASSESSMENT DONE. NO VISIBLE INJURIES NOTED, ABLE TO MOVE ALL EXTREMITIES. PT WITH NO COMPLAIN OF PAIN. V/S TAKEN; BP124/55, P 75, 18, T 98F AND SP02 96%. DR CHERRY MADE AWARE. PT'S PLACED ON 1:1 SITTER FOR CLOSE MONITORING. BED ALARM ON WITH SR UP X3. WILL CONTINUE TO CLOSELY MONITOR PT.
--- NOTE | 2019-11-26 14:52 | NUR ---
RN NOTES BLOOD TRANSFUSION OF PRBC X1 BAG ( 250ML) JUST FINISHED. NO ALLERGIC/ADVERSE REACTIONS NOTED DURING TRANSFUSION. S/P BT V/S: BP 116/76, P 79, R 18 AND T 98F. WILL CONTINUE TO MONITOR.
[2019-11-26 15:48] LABS: OCCULT BLOOD STOOL NEGATIVE (NEGATIVE)
[2019-11-26] MEDS: METOPROLOL SUCCINATE 50 MG TAB.SR.24H PO SCH (17:41)
--- NOTE | 2019-11-26 18:19 | NUR ---
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 His primary language is Sami, he resides at the [facility] [phone]. Per Martín -nurse at the [facility], patient is wheelchair bound and requires max assist with adl's. He own a wheelchair, hosp bed and shower chair. No homehealth reported. [facility] bed will be available if patient goes back vs SNF placement. Will discuss with pcp . Addendum: 11/26/19 at 1819 by CARLA MCCLAIN RN Amended: Links added.
--- NOTE | 2019-11-26 18:59 | NUR ---
MS RN CLOSING NOTES PT IN BED AWAKE AND RESTING AT MODERATE HIGH BACKREST POSITION. A/O X2-3. VERBALLY RESPONSIVE. NOTED WITH PERIODS OF CONFUSION. REORIENTED AND REDIRECTED NEEDED. ON ROOM AIR, TOLERATING WELLL WITH NO ACUTE RESPIRATORY DISTRESS NOTED THROUGHOUT THE DAY. IV SL ON RIGHT HAND G #22 PATENT, INTACT AND FLUSHES WELL. PT REFUSED TO REMOVE HIS SHOES, PANTS AND SWEATER DESPITE MULTIPLE ATTEMPTS, PT BECAME VERY ANGRY AND UPSET. FALL AND SEIZURE PRECAUTIONS MAINTAINED, NO SEIZURE ACTIVITY NOTED DUEING SHIFT. BED IN LOW LOCKED POSITION WITH SIDE RAILS UP X3 BED ALARM ON. ALL NEEDS AND CARE PROVIDED WELL. KEPT CLEAN, DRY AND COMFORTABLE. WILL ENDORSED TO CAREER TECHNICAL SUPERVISOR NURSE FOR MALIKA
--- NOTE | 2019-11-26 19:30 | NUR ---
MS RN NOTE: PATIENT RESTING IN BED, NO ACUTE DISTRESS NOTED. BREATHING EVEN AND UNLABORED, NO SOB NOTED. IV TO LEFT HAND IN PLACE. SITTER AT BEDSIDE. BED LOCKED AND IN LOWEST POSITION, CALL LIGHT IN REACH. WILL CONTINUE TO MONITOR.
--- NOTE | 2019-11-26 21:20 | NUR ---
MS RN NOTE: PATIENT AGITATED AND TRYING TO GET OUT OF BED, ATIVAN 3MG IV GIVEN PER MD ORDER. WILL CONTINUE TO MONITOR.
--- NOTE | 2019-11-27 06:10 | NUR ---
MS RN NOTE: PATIENT RESTING IN BED, NO ACUTE DISTRESS NOTED. BREATHING EVEN AND UNLABORED, NO SOB NOTED. IV TO LEFT HAND IN PLACE. SITTER AT BEDSIDE. BED LOCKED AND IN LOWEST POSITION, CALL LIGHT IN REACH. WILL ENDORSE TO DAY NURSE TO CONTINUE WITH PLAN OF CARE.
[2019-11-27 07:29] LABS: BASOPHILS % (AUTO) 0.8 % (0.0-2.0); EOSINOPHILS % (AUTO) 4.8 % (0.0-6.0); HEMATOCRIT 27 % (39-51); HEMOGLOBIN 8.5 g/dL (13.5-17.5); LYMPHOCYTES % (AUTO) 26.1 % (20.0-44.0); MEAN CORPUSCULAR HGB CONC 32 g/dl (31.0-36.0); MEAN CORPUSCULAR VOLUME 80 fL (80-96); MONOCYTES # (AUTO) 0.5 /CMM (0.1-1.30); MONOCYTES % (AUTO) 13.1 % (2.0-12.0); NEUTROPHILS # (AUTO) 2.1 /CMM (1.8-8.9); NEUTROPHILS % (AUTO) 55.2 % (43.0-81.0); PLATELET COUNT (AUTO) 399 /CMM (150-450); RED BLOOD CELL COUNT(AUTO) 3.32 MIL/uL (4.5-6.0); WHITE BLOOD COUNT (AUTO) 3.9 K/uL (4.3-11.0)
[2019-11-27] MEDS: PANTOPRAZOLE 40 MG TABLET.DR PO SCH (07:30)
[2019-11-27 08:00] VITALS: BP 106/72
[2019-11-27] MEDS: LamoTRIgine 25 MG TABLET PO SCH (09:00)
[2019-11-27] MEDS: FUROSEMIDE 20 MG TABLET PO SCH (09:00)
[2019-11-27] MEDS: LOSARTAN POTASSIUM 50 MG TABLET PO SCH ×2 (09:00→18:54)
[2019-11-27] MEDS: ASPIRIN EC 81 MG TABLET.DR PO SCH (09:00)
[2019-11-27] MEDS: ATORVASTATIN 40 MG TABLET PO SCH (09:00)
[2019-11-27] MEDS: SPIRONOLACTONE 25 MG TABLET PO SCH (09:00)
[2019-11-27] MEDS: POTASSIUM CHLORIDE 20 MEQ TAB.PRT.SR PO SCH (09:00)
[2019-11-27] MEDS: risperiDONE 0.25 MG TABLET PO SCH ×2 (09:00→18:53)
[2019-11-27] MEDS: CHOLECALCIFEROL 1,000 UNIT TABLET (VIT D3) PO SCH (09:00)
[2019-11-27] MEDS: FINASTERIDE (5 MG) 5 MG TABLET PO SCH (09:00)
[2019-11-27] MEDS: VALPROATE 500 MG in IV NS 0.9% 100 ML IV SCH ×2 (09:20→20:13)
[2019-11-27] MEDS: LEVETIRACETAM (250 MG) 250 MG TABLET PO SCH ×2 (11:38→22:00)
[2019-11-27] MEDS: ZONISAMIDE 100 MG CAPSULE PO SCH (11:38)
[2019-11-27 16:00] VITALS: BP 147/80
--- NOTE | 2019-11-27 18:00 | NUR ---
1:1 sitter all day.siderails up. vs stable. dr. isaacs in and orders for egd tomorrow.
[2019-11-27] MEDS: METOPROLOL SUCCINATE 50 MG TAB.SR.24H PO SCH (18:54)
--- NOTE | 2019-11-27 19:35 | NUR ---
RN NOTES RECEIVED PT. AWAKE ON BED, SITTER AT BEDSIDE, A/OX2, NOT IN DISTRESS NO FLOYD NOTED, CALL LIGHT WITHIN REACH, SIDERAILSUPX2, CONTINUE TO MONITOR
[2019-11-27 20:00] VITALS: BP 115/76
--- NOTE | 2019-11-27 20:30 | NUR ---
RN NOTES IV LINE IS INFILTRATED, NEW IV LINE INSERTED ON THE RIGHT WRIST GAUGE 22
--- NOTE | 2019-11-28 05:00 | NUR ---
RN NOTES ER NURSE CAME UP AND PUT A NEW LINE TO THE PATIENT
--- NOTE | 2019-11-28 06:34 | NUR ---
RN NOTES' SLEEPING BUT AROUSABLE, NOT IN DISTRESS, MORNING CARE RENDERED, PT. NEEDS ATTENDED
--- NOTE | 2019-11-28 07:05 | NUR ---
RN NOTES CALLED TO THE [facility] AND SPOKE TO DEWEY DAVIS REGADING THE NEXT OF KIN OF THE PATIENT. .. PER DEWEY DAVIS SHE WILL CALL BACK AND CHECKED THE PT. FILE FOR THE NEXT OF KIN.. ENDORSED TO DAYSHIFT NURSE
[2019-11-28 08:00] VITALS: BP 107/76
--- NOTE | 2019-11-28 08:18 | NUR ---
MS RN NOTES PATIENT RECEIVED RESTING INSIDE ROOM. AWAKE, A/O X 2. NO ACUTE DISTRESS. NO CHANGES IN LOC NOTED. DENIES ANY PAIN OR DISCOMFORT. PATIENT NPO AFTER BREAKFAST, ANTICIPATING EGD AT 1800. SITTER AT BEDSIDE. WILL CONTINUE TO MONITOR. BED LOCKED AND IN LOW POSITION. SIDE RAILS UP X 3. CALL LIGHT WITHIN EASY REACH
[2019-11-28] MEDS: POTASSIUM CHLORIDE 20 MEQ TAB.PRT.SR PO SCH (08:29)
[2019-11-28] MEDS: LamoTRIgine 25 MG TABLET PO SCH (08:29)
[2019-11-28] MEDS: CHOLECALCIFEROL 1,000 UNIT TABLET (VIT D3) PO SCH (08:29)
[2019-11-28] MEDS: LEVETIRACETAM (250 MG) 250 MG TABLET PO SCH ×2 (08:29→20:03)
[2019-11-28] MEDS: ASPIRIN EC 81 MG TABLET.DR PO SCH (08:29)
[2019-11-28] MEDS: FUROSEMIDE 20 MG TABLET PO SCH (08:29)
[2019-11-28] MEDS: PANTOPRAZOLE 40 MG TABLET.DR PO SCH (08:29)
[2019-11-28] MEDS: FINASTERIDE (5 MG) 5 MG TABLET PO SCH (08:30)
[2019-11-28] MEDS: risperiDONE 0.25 MG TABLET PO SCH ×2 (08:30→16:41)
[2019-11-28] MEDS: ZONISAMIDE 100 MG CAPSULE PO SCH (08:30)
[2019-11-28] MEDS: ATORVASTATIN 40 MG TABLET PO SCH (08:32)
[2019-11-28] MEDS: LOSARTAN POTASSIUM 50 MG TABLET PO SCH ×2 (08:33→16:40)
[2019-11-28] MEDS: SPIRONOLACTONE 25 MG TABLET PO SCH (08:34)
[2019-11-28] MEDS: VALPROATE 500 MG in IV NS 0.9% 100 ML IV SCH ×2 (09:56→20:03)
[2019-11-28 16:00] VITALS: BP 110/60
[2019-11-28] MEDS: METOPROLOL SUCCINATE 50 MG TAB.SR.24H PO SCH (17:05)
--- NOTE | 2019-11-28 18:11 | NUR ---
MS RN NOTES PATIENT BROUGHT TO OR BY SURGICAL STAFF. LEFT IN STABLE CONDITION VIA HOSPITAL BED. WILL ENDORSE TO INCOMING SHIFT FOR MALIKA. BED LOCKED AND IN LOW POSITION. BILATERAL UPPER SIDE RAILS UP AND LOCKED. CALL LIGHT WITHIN EASY REACH
[2019-11-28 20:00] VITALS: BP 121/83
--- NOTE | 2019-11-28 20:27 | NUR ---
MS RN OPENING NOTES PATIENT RESTING IN BED COMFORTABLY; BREATHING EVEN AND UNLABORED; A/O X2. NO S/S OF ACUTE RESPIRATORY DISTRESS NOTED. R WRIST #22 INTACT AND PATENT; FLUSHING WELL, NO S/S OF REDNESS OR INFILTRATION; BED LOCKED IN LOW POSITION, SAFETY PRECAUTION IN PLACE, UPPER SIDE RAILS UP X2. CALL LIGHT WITHIN EASY REACH, WILL CONTINUE TO MONITOR.
--- NOTE | 2019-11-29 06:44 | NUR ---
MS RN CLOSING NOTES PATIENT RESTING COMFORTABLY IN BED; BREATHING EVEN AND UNLABORED; NO S/S OF ACUTE RESPIRATORY DISTRESS NOTED; PATIENT IS A/O X1-2 WITH CONTINUED CONFUSION; L WRIST #22 INTACT AND PATENT; FLUSHING WELL; NO S/S OF REDNESS OR INFILTRATION; BED LOCKED IN LOW POSITION, SAFETY PRECAUTIONS IN PLACE; CALL LIGHT WITHIN REACH; WILL ENDORSE CONTINUITY OF CARE TO ONCOMING SHIFT.
[2019-11-29] MEDS: PANTOPRAZOLE 40 MG TABLET.DR PO SCH ×2 (07:30→09:34)
--- NOTE | 2019-11-29 07:55 | NUR ---
MS RN NOTES PATIENT RECEIVED RESTING INSIDE ROOM. AWAKE, ALERT AND ORIENTED X 2. NO ACUTE DISTRESS. DENIES ANY PAIN OR DISCOMFORT. SEIZURE PRECAUTIONS IN PLACE. SAFETY PRECAUTIONS IN PLACE. WILL CONTINUE TO MONITOR. BED LOCKED AND IN LOW POSITION. SIDE RAILS UP X 3. CALL LIGHT WITHIN EASY REACH
[2019-11-29 08:00] VITALS: BP 122/78
[2019-11-29] MEDS: CHOLECALCIFEROL 1,000 UNIT TABLET (VIT D3) PO SCH (09:34)
[2019-11-29] MEDS: ATORVASTATIN 40 MG TABLET PO SCH (09:34)
[2019-11-29] MEDS: FINASTERIDE (5 MG) 5 MG TABLET PO SCH (09:34)
[2019-11-29] MEDS: LOSARTAN POTASSIUM 50 MG TABLET PO SCH ×2 (09:34→17:00)
[2019-11-29] MEDS: SPIRONOLACTONE 25 MG TABLET PO SCH (09:34)
[2019-11-29] MEDS: ASPIRIN EC 81 MG TABLET.DR PO SCH (09:34)
[2019-11-29] MEDS: POTASSIUM CHLORIDE 20 MEQ TAB.PRT.SR PO SCH (09:34)
[2019-11-29] MEDS: LEVETIRACETAM (250 MG) 250 MG TABLET PO SCH (09:34)
[2019-11-29] MEDS: risperiDONE 0.25 MG TABLET PO SCH ×2 (09:34→17:10)
[2019-11-29] MEDS: FUROSEMIDE 20 MG TABLET PO SCH (09:35)
[2019-11-29] MEDS: LamoTRIgine 25 MG TABLET PO SCH (09:35)
[2019-11-29] MEDS: ZONISAMIDE 100 MG CAPSULE PO SCH (09:40)
[2019-11-29] MEDS: VALPROATE 500 MG in IV NS 0.9% 100 ML IV SCH (09:40)
[2019-11-29 16:00] VITALS: BP 109/71
[2019-11-29 17:10] VITALS: BP 109/71
[2019-11-29] MEDS: METOPROLOL SUCCINATE 50 MG TAB.SR.24H PO SCH (17:10)
--- NOTE | 2019-11-29 17:50 | NUR ---
MS RN NOTES RECEIVED CALL FROM CASE MANAGEMENT THAT PATIENT HAS DISCHARGE PLAN TO BE TRANSFERRED TO THE [facility] ([phone]). CHARGE NURSE ALSO AWARE, VERBALIZED THAT DR FREEMAN WILL COME AND SEE PATIENT FOR DISCHARGE. PLACED CALL TO THE [facility] AND GAVE REPORT TO YAIMA SYED. WILL CONTINUE TO MONITOR
--- NOTE | 2019-11-29 18:17 | NUR ---
MS RN NOTES PATIENT RESTING INSIDE ROOM. ANTICIPATING DISCHARGE WITH CLEARANCE FROM DR FREEMAN. DISCHARGE TEACHING AND INSTRUCTIONS PROVIDED TO PATIENT. NO NEW SKIN BREAKDOWN NOTED AT THIS TIME. PATIENT KEPT CLEAN, DRY AND COMFORTABLE. PROVIDED WITH CALM, SAFE, HAZARD-FREE ENVIRONMENT. MAINTAINED SEIZURE PRECAUTIONS. WILL ENDORSE TO INCOMING SHIFT FOR MALIKA. BED LOCKED AND IN LOW POSITION. SIDE RAILS UP X3. CALL LIGHT WITHIN EASY REACH
--- NOTE | 2019-11-29 19:02 | NUR ---
MS RN NOTES DR FREEMAN STILL NOT AT UNIT. PLACED CALL TO DR CHERRY AND MADE AWARE. GAVE TELEPHONE ORDER WITH OK TO DISCHARGE TO THE [facility], MAY CONTINUE SAME MEDICATIONS. NOTED AND CARRIED OUT. ENDORSED TO INCOMING SHIFT FOR MALIKA
--- NOTE | 2019-11-29 19:45 | NUR ---
ms/rn notes/DISCHARGE MD FREEMAN AT BEDSIDE, REVIEWED DISCHARGE LIST OF MEDICATIONS. IV LINE ON LEFT HAND REMOVED, ID BAND REMOVED,AWAITING FOR AMBULANCE TO DIRECTOR CLOUD TRANSFORMATION PATIENT.
--- NOTE | 2019-11-29 20:25 | NUR ---
ms/behavioral health rn pickle cutter PATIENT DISCHARGE TO [facility]BUL[facility] ARRIVFE WITH DAYANNA, REPORT GIVEN TO EMT, VITAL SIGNS CHECK,B/P 119/72, 79, 96, R- 19 NO GUARDING OR GRIMACE, PATIENT ALERT X2, ABLE TO FOLLOW SIMPLE COMMANDS, BELONGINGS CHECK AND RETURNED, NO SKIN ISSUES, SKIN INTACT AND DRY. IV REMOVED. ID BAND REMOVED. PATIENT ON A GURNEY VIA AMBULANCE TRANSFERED TO [facility]. AWARE.
== END 2019-11-29 20:25 | DRG 101 ==
LOC: ER 12:25 → TELE 14:22 → MED 11-26 08:55
PROVIDERS: ADMIT Internal Medicine; ATTEND Internal Medicine
PROC: 30233N1 Transfusion of Nonautologous Red Blood Cells into Peripheral Vein, Percutaneous Approach (ICD-10-PCS; 2019-11-25)
PROC: 0DB98ZX Excision of Duodenum, Via Natural or Artificial Opening Endoscopic, Diagnostic (ICD-10-PCS; principal; 2019-11-28)
DX: G40.409 Other generalized epilepsy and epileptic syndromes, not intractable, without status epilepticus (principal); I69.354 Hemiplegia and hemiparesis following cerebral infarction affecting left non-dominant side; G93.40 Encephalopathy, unspecified; M81.0 Age-related osteoporosis without current pathological fracture; I10 Essential (primary) hypertension; F41.9 Anxiety disorder, unspecified; F03.90 Unspecified dementia, unspecified severity, without behavioral disturbance, psychotic disturbance, mood disturbance, and anxiety; F17.210 Nicotine dependence, cigarettes, uncomplicated; N40.0 Benign prostatic hyperplasia without lower urinary tract symptoms; J44.9 Chronic obstructive pulmonary disease, unspecified; E55.9 Vitamin D deficiency, unspecified; D50.9 Iron deficiency anemia, unspecified; K29.70 Gastritis, unspecified, without bleeding
CPT/HCPCS: 36415; 71045-TC; 80048-TC; 80053-TC; 80076-TC; 80164-TC; 82272-TC; 82728-TC; 82962-TC; 83540-TC; 84484-TC; 85025-TC; 85730-TC; 86850-TC; 86921-TC; 87081-TC; 88305-TC; G0378; J1940; J1953; J2060; J2704; J3490; J7030; J7050; P9016-BL